=== PATIENT | male | born 1975 | race Caucasian/White ===

== ENCOUNTER 2021-09-11 17:23 | Emergency (ER) | payer MEDICAID ==
[~2021-09-11] VITALS: Ht 182.9 cm; Wt 100.0 kg
[2021-09-11 17:51] VITALS: BP 133/88
[2021-09-11] MEDS ORDERED: CEFTRIAXONE 1 G PREMIX 50 ML IV ONE (23:00)
[2021-09-11] MEDS ORDERED: SODIUM CHLORIDE 0.9% 1000ML BAG (SEPSIS BOLUS) IV ONE (23:00)
[2021-09-11 23:12] LABS: BASOPHILS % 0.5 % (0.0-2.0); EOSINOPHILS % 0.3 % (0.0-5.0); HEMATOCRIT. 44.7 % (42.0-52.0); HEMOGLOBIN. 15.1 g/dL (14.0-18.0); LYMPHOCYTES % 11.7 % (20.0-50.0); MEAN CORPUSCULAR HEMOGLOBIN 30.4 pg (28.0-32.0); MEAN CORPUSCULAR VOLUME 90.1 fL (80.0-94.0); MEAN PLATELET VOLUME 8.7 fl (7.4-10.4); MONOCYTES % 8.4 % (2.0-8.0); NEUTROPHILS % 79.1 % (40.0-76.0); PLATELET 194 x1000/uL (130-400); RED BLOOD CELL COUNT 4.96 mill/uL (4.7-6.1); RED CELL DISTRIBUTION WIDTH 13.4 % (11.6-14.6)
[2021-09-11 23:20] LABS: CHLORIDE 103 mEq/L (98-107)
[2021-09-12] MEDS ORDERED: IOHEXOL-300 100 ML BOTTLE ONE (01:35)
[2021-09-12] MEDS ORDERED: SULF1TAB48 MT (02:37)
[2021-09-12] MEDS ORDERED: CEPH500C2 MT (02:38)
== END 2021-09-12 02:52 | disposition home or self-care (01) ==
LOC: ER 17:23
DX: L03.115 Cellulitis of right lower limb (principal); R10.32 Left lower quadrant pain; D72.829 Elevated white blood cell count, unspecified
CPT/HCPCS: 36415; 74177; 80053; 83605; 85025; 96365; 99285; J0696; J7030; Q9967